=== PATIENT | female | born 1970 | race Caucasian/White ===

== ENCOUNTER → 2019-04-20 10:05 | Outpatient (CLI) | payer BC, SELFPAY ==
--- NOTE | ~2019-04-20 | XR_ITS ---
EXAMINATION: XR chest 2V DATE: 04/20/2019 10:22 INDICATION: Cough. TECHNIQUE: Frontal and lateral views of the chest were obtained. COMPARISON: Chest 2 views 01/06/2018 FINDINGS: The chest demonstrates clear lungs without pneumonia, pleural effusion, or pneumothorax. Th e heart size is normal. IMPRESSION: 1. No acute cardiopulmonary disease. Reviewed, dictated and finalized at location A. [facility]
== END ==
PROVIDERS: PCP Internal Medicine; Visit Provider Internal Medicine
DX: R05 Cough (principal)
CPT/HCPCS: 71046

== ENCOUNTER → 2019-05-18 10:16 | Outpatient (CLI) | payer BC, SELFPAY ==
--- NOTE | ~2019-05-18 | CT_ITS ---
EXAMINATION: CT sinus wo con DATE: 05/18/2019 10:31 INDICATION: Deviated nasal septum. TECHNIQUE: Computed tomography (CT) of the paranasal sinuses was performed without intravenous contra st. The dose-length product was 296.82 mGy-cm. Iterative reconstruction technique was employed. COMPARISON: None FINDINGS: Mild mucosal thickening of the maxillary and ethmoid sinuses. No air-fluid levels. Mastoids are pneumatized. Rightward nasal septal deviation. There are surgical changes consistent with resect ion of the ostiomeatal units. IMPRESSION: 1. Mild sinus disease. 2: Rightward nasal septal deviation. Reviewed, dictated and finalized at location A.
== END ==
PROVIDERS: PCP Internal Medicine; Visit Provider Otolaryngology
DX: J34.2 Deviated nasal septum (principal); J32.9 Chronic sinusitis, unspecified
CPT/HCPCS: 70486

== ENCOUNTER 2019-08-17 09:44 | Emergency (ER) | payer BC, SELFPAY ==
[2019-08-17] VITALS (7 sets, daily range): BP systolic 108–128; BP diastolic 64–89; PULSE 61–78; RESP 16–20; TEMP 36.6; O2SAT 100
--- NOTE | ~2019-08-17 | CT_ITS ---
EXAMINATION: CT brain wo con EXAM DATE: 08/17/2019 15:01 INDICATION: Frontal and occipital headache. TECHNIQUE: Spiral CT of the head was performed without contrast. Axial, coronal and sagittal images were reviewed. The dose-length product (DLP) for this examination was 681.00 mGy-cm. The exposure w as tailored according to patient size, and iterative reconstruction (ASIR) was used as additional dos e reduction technique. There is no prior study for comparison. FINDINGS: There is no acute intraparenchymal hemorrhage. No evidence of intraparenchymal brain mass lesion. No evidence of acute infarction. Please note that initial head CT has limited sensitivity f or small or acute infarctions. There is mild periventricular and subcortical hypodensity, nonspecific but probably related to small vessel ischemic disease. There is intracranial carotid arteriosclero sis. There are no extra-axial collections. There is no mass effect or midline shift. The orbits ar e unremarkable. Soft tissue is unremarkable. The visualized sinuses and mastoid air cells are well aerated. IMPRESSION: 1. No acute intracranial findings. Reviewed, dictated and finalized at location A.
--- NOTE | 2019-08-17 10:01 | ED.HA ---
HPI - Headache General Chief Complaint: Headache Stated Complaint: headache Time Seen by Provider: 08/17/19 09:48 Source: RN notes reviewed History of Present Illness HPI Narrative: Patient presents emergency department from home for headache. Patient states that symptoms began 2 days ago. Patient states she has a history of migraine headaches and this feels consistent with her previous migraines. She states she tried taking Topamax at home with minimal relief. Patient states that headache is associated with photosensitivity mild nausea she denies any fevers or chills vision changes neck pain numbness or tingling in extremities or any other symptoms. She states she took no pain medication this morning patient is followed by her PCP Dr. Wallis for her migraine headaches. States she normally gets migraines approximately once a month with her menstrual cycle. Patient states headache is located over frontal face behind the eyes and then superior posterior head which is consistent with previous migraines denies any neck pain Related Data Allergies Allergy/AdvReac Type Severity Reaction Status Date / Time Sulfa (Sulfonamide Allergy Unknown Verified 08/17/19 10:09 Antibiotics) Review of Systems Review of Systems: Narrative: Gen.: Denies fevers or chills Eyes: Denies eye pain or visual change ENT: Denies congestion Respiratory: Denies shortness of breath or cough CV: Denies chest pain or palpitations GI: Denies abdominal pain emesis or diarrhea. Reports mild nausea Musculoskeletal: Denies back pain or muscle pain Neuro: See HPI Skin: Denies rash Except as documented, all other systems reviewed and negative [facility] Past Medical History Medical History (Updated 08/17/19 @ 12:47 by Alejandro Rogers DO) Hypothyroidism Migraine headache Social History Social History (Updated 08/17/19 @ 10:02 by Alejandro Rogers DO) Smoking status: Never smoker Gender identity (if verbalized by the patient): Female Exam Narrative: Exam Narrative: APPEARANCE: No acute distress, nontoxic, resting in bed HEENT: Normocephalic, atraumatic, OMM, TMs clear bilaterally EYES: PERRL, EOMI NECK: Supple, nontender, full range of motion without pain, no meningismus RESPIRATORY: No respiratory distress, clear to auscultation bilaterally with no rhonchi wheezing or rales CARDIOVASCULAR: RRR s murmur ABDOMINAL: Soft, nontender, nondistended MUSCULOSKELETAL: Moves all extremities. No clubbing, cyanosis or edema. NEURO: A and O ?3, following commands, speech normal, cranial nerves II through XII grossly intact,muscle strength 5 out of 5 bilateral upper and lower extremities SKIN:: Warm, dry. Normal Color PSYCHIATRIC: Normal affect/mood Course Course Emergency Course: Patient states she is feeling better at this time. States that she is ready for discharge. Discussed with patient results of workup and diagnosis. Discussed need for follow-up with primary care, proper use of medication, and reasons to return to the emergency department. Patient understands and agrees to current treatment plan Vital Signs Vital signs: Vital Signs Temperature 97.8 F 08/17/19 09:50 Pulse Rate 76 08/17/19 09:50 Respiratory Rate 16 08/17/19 09:50 Blood Pressure 128/89 08/17/19 09:50 Pulse Oximetry 100 08/17/19 09:50 Temperature 97.8 F 08/17/19 09:50 Pulse Rate 76 08/17/19 09:50 Respiratory Rate 16 08/17/19 09:50 Blood Pressure 128/89 08/17/19 09:50 Pulse Oximetry 100 08/17/19 09:50 MDM - Headache MDM Narrative Medical decision making narrative: Patient's headache was not sudden or maximal in onset. There are no focal deficits on exam. Subarachnoid hemorrhage is felt to be unlikely at this time. There is no history of fever and neck is supple to evaluation without meningismus. Meningitis is felt to be unlikely. No traumatic history or signs of trauma on evaluation. Risk factors for cerebral venous thrombosis reviewed, no visual
[2019-08-17] MEDS: SODIUM CHLORIDE 0.9% IV 1,000 ML 999 ML IV CONT ×2 (10:10→11:45)
[2019-08-17] MEDS: KETOROLAC 30 MG/ML VIAL (*BKC) IV PUSH (10:11)
[2019-08-17] MEDS: ONDANSETRON INJ 4 MG/2 ML VIAL IV PUSH (10:11)
[2019-08-17] MEDS: MORPHINE SULFATE 4 MG/ML INJ IV PUSH (13:47)
[2019-08-17] MEDS: MAGNESIUM SULF 2 GM/WATER 50ML 2 GM/50 ML BAG IVPB (15:54)
[2019-08-17 16:05] LABS: Basophils Percent Auto 0.4 % (0.2-1.2); Eosinophils Percent Auto 0.6 % (0-4.4); Hematocrit 39.8 % (37.0-47.0); Hemoglobin 13.6 g/dL (12.0-15.0); Immature Granulocyte Absolute 0.02 K/mm3 (0.00-0.031); Immature Granulocyte Percent A 0.3 % (0-0.5); Lymphocytes Absolute Auto 1.47 K/mm3 (0.9-3.2); Lymphocytes Percent Auto 20.3 % (18.3-44.2); Mean Corpuscular HGB Conc 34.2 g/dl (32-36); Mean Corpuscular Hemoglobin 30.8 pg (26-34); Monocytes Absolute Auto 0.3 K/mm3 (0.1-0.6); Monocytes Percent Auto 3.6 % (2.6-8.5); Neutrophils Absolute Auto 5.4 K/mm3 (1.3-6.7); Neutrophils Percent Auto 74.8 % (45.5-73.1); Platelet Count Result 203 k/mm3 (150-375); Red Blood Count 4.42 M/mm3 (4.2-5.4); Red Cell Distribution Width 12.5 % (11.5-14.5); White Blood Count 7.2 K/mm3 (4.5-10.0)
[2019-08-17 16:15] LABS: Blood Urea Nitrogen 10 mg/dL (7-17); Calcium 8.1 mg/dL (8.4-10.2); Carbon Dioxide 20 mmol/L (22-30); Chloride 110 mmol/L (98-107); Estimated CRCL calculation 61 ml/min; Estimated Glomerular Filt Rate > 60; Glucose 86 mg/dL (65-105); Potassium 4.4 mmol/L (3.4-5.0); Sodium 136 mmol/L (137-145)
== END 2019-08-17 18:00 | disposition home or self-care (01) ==
PROVIDERS: Emergency Provider Emergency Medicine; PCP Internal Medicine
DX: G43.909 Migraine, unspecified, not intractable, without status migrainosus (principal); E03.9 Hypothyroidism, unspecified
CPT/HCPCS: 36415; 70450; 80048; 85025; 96361; 96365; 96375; 99284; J0131; J1100; J1200; J1885; J2270; J2405; J3475; J7030

== ENCOUNTER 2019-09-09 14:39 | Outpatient (CLI) | payer BC, SELFPAY ==
--- NOTE | ~2019-09-09 | US_ITS ---
EXAMINATION: US carotid duplex BI DATE: 09/09/2019 15:24 INDICATION: Atherosclerosis. Carotid stenosis. TECHNIQUE: Grayscale, color Doppler, and pulsed Doppler images of the cervical carotid arteries were obtained. The degree of vessel stenosis is placed in one of the following categories: normal, <50%, 5 0-69%, >=70% but less than near-occlusion, near-occlusion, or total occlusion. Note that percent sten osis relative to normal distal artery lumen diameter is indirectly measured from velocity measurement s as described by Sebastian, et al. Radiology 2003; [id number]. Notes: Normal: Peak systolic velocity <125 centimeters/sec and no plaque <50%. Peak systolic velocity <125 ( EDV <40; ICA/CCA PSV ratio <2.0; used these factors only a tandem lesions or low cardiac output or co ntralateral disease) 50-69 %: PSV 125-230 (EDV 40-100; ratio 2-4) >= 70% but less than near occlusion: PSV greater than 230 (EDV > 100; ratio> 4.0) Near Occlusion: PSV that is variable; markedly narrowed lumen Occlusion: Absent flow on color/spectral Doppler and no lumen on tyler scale. COMPARISON: None. FINDINGS: RIGHT: The right common carotid artery (CCA) peak systolic velocity (PSV) is 111 cm/s. The right internal ca rotid artery (ICA) PSV is 99 cm/s. The right ICA end-diastolic velocity (EDV) is 42 cm/s. The right I CA/CCA PSV ratio is 0.9. The external carotid artery (ECA) PSV is 124 cm/s. There is antegrade flow i n the right vertebral artery. LEFT: The left CCA PSV is 88 cm/s. The left ICA PSV is 81 cm/s. The left ICA EDV is 37 cm/s. The left ICA/C CA PSV ratio is 0.9. The ECA PSV is 106 cm/s. There is antegrade flow in the left vertebral artery. IMPRESSION: 1. Less than 50% stenosis in the right internal carotid artery by sonographic criteria. 2. Less than 50% stenosis in the left internal carotid artery by sonographic criteria. Reviewed, dictated and finalized at location A. IMPRESSION: 1. Less than 50% stenosis in the right internal carotid artery by sonographic c yocasta. 2. Less than 50% stenosis in the left internal carotid artery by sonographic awilda summers.
== END 2019-09-09 14:40 | disposition home or self-care (01) ==
PROVIDERS: PCP Internal Medicine; Visit Provider Internal Medicine
DX: I77.9 Disorder of arteries and arterioles, unspecified (principal); I65.23 Occlusion and stenosis of bilateral carotid arteries
CPT/HCPCS: 93880

== ENCOUNTER 2021-12-09 08:34 | Emergency (ER) | payer BC, SELFPAY ==
[2021-12-09 08:45] VITALS: BP 127/82; PULSE 84; RESP 16; TEMP 36.7; O2SAT 100
--- NOTE | 2021-12-09 09:12 | ED.GENADULT ---
HPI - General Adult General Chief complaint: Upper Respiratory Infection Stated complaint: cough,throat hurts Source: patient and family Mode of arrival: ambulatory Limitations: no limitations History of Present Illness HPI narrative: Patient presents for evaluation of sick symptoms for the last 4 days. Symptoms include sinus congestion, headache, sore throat, cough, body aches, fatigue and nausea, No fever, chills, vomiting, otalgia, chest pain, shortness of breath. She states she was exposed to COVID recently. She has never had COVID in the past. She took a home COVID test approximately 3 days ago which was negative. She is using phenylephrine and dextromethorphan with some mild improvement in her symptoms. She does not smoke. Related Data Home Medications Medication Instructions Recorded Confirmed alprazolam 0.5 mg tablet 0.5 mg PO DAILY 12/09/21 12/09/21 galcanezumab-gnlm 120 mg/mL 120 mg subcut DIRECTED 12/09/21 12/09/21 subcutaneous pen injector (Emgality Pen) levothyroxine 100 mcg tablet 100 mcg PO DAILY 12/09/21 12/09/21 rizatriptan 10 mg disintegrating 10 mg PO DAILY 12/09/21 12/09/21 tablet topiramate 100 mg tablet 100 mg PO DAILY 12/09/21 12/09/21 Allergies Allergy/AdvReac Type Severity Reaction Status Date / Time Sulfa (Sulfonamide Allergy Unknown Verified 12/09/21 08:53 Antibiotics) Review of Systems Review of Systems: CONSTITUTIONAL: Reports fatigue. Denies fever, chills, or sweats. EYES: Denies visual changes, redness, or discharge. ENT: Reports sinus congestion, postnasal drainage, sore throat. CARDIOVASCULAR: Denies chest pain, palpitations, or edema. RESPIRATORY: Reports cough. Denies shortness of breath GASTROINTESTINAL: Reports nausea. Denies abdominal pain, vomiting, or diarrhea. GENITOURINARY: Denies dysuria or hematuria. SKIN: Denies rash or itching. MUSCULOSKELETAL: Reports generalized body aches. NEUROLOGIC: Reports headache. Denies numbness, dizziness, or weakness. PSYCHIATRIC: Denies anxiety or depression. [facility] Past Medical History Medical History (Updated 12/09/21 @ 09:40 by Bright Mcneil, CUSTOMER SERVICE TRAINER, ) Hypothyroidism Migraine headache Surgical History Surgical History H/O sinus surgery History of rhinoplasty Family History Family History Mother Family history non-contributory Social History Social History Smoking status: Never smoker Alcohol intake: current Alcohol use details: Social but rare Substance use: never Living arrangements: with family Gender identity (if verbalized by the patient): Female Sexual Orientation (if Verbalized by the Patient): Straight or Heterosexual Spiritual care concerns: No Exam Narrative: GENERAL: Well-appearing, well-nourished, and in no acute distress. HEAD: Normocephalic, atraumatic. EYES: PERRLA and EOMI. ENT: Nares clear, no rhinorrhea or epistaxis. Mucous membranes moist. There is posterior pharyngeal erythema without exudate. Uvula is midline. Bilateral TMs pearly tyler nonbulging NECK: Supple. No adenopathy or masses. No carotid bruits or JVD CHEST: Occasional cough on exam. Clear to auscultation. No respiratory distress. No wheezes rales or rhonchi HEART: Regular rate and rhythm. No murmur heard. Normal peripheral pulses. ABDOMEN: Soft, nontender, nondistended, normal active bowel sounds. EXTREMITIES: Normal range of motion. No edema. SKIN: Warm, dry, no rash. NEURO: No focal deficits. Alert and oriented x3. PSYCH: Normal mood and affect. Course Course Emergency Course: This is a 52-year-old female presented for evaluation of sick symptoms. COVID, influenza, strep are all negative. She does meet criteria for ABRS and pharyngitis we will treat with Augmentin. She can continue to take phenylephrine and
== END 2021-12-09 09:45 | disposition home or self-care (01) ==
PROVIDERS: Emergency Provider Nurse Practitioner; PCP Internal Medicine
DX: J02.9 Acute pharyngitis, unspecified (principal); Z20.822 Contact with and (suspected) exposure to COVID-19; E03.9 Hypothyroidism, unspecified
CPT/HCPCS: 87081; 87426; 87804; 87880; 99213; C9803; G0463

== ENCOUNTER → 2021-12-12 15:54 | Outpatient (CLI) | payer BC, SELFPAY ==
--- NOTE | ~2021-12-12 | XR_ITS ---
EXAMINATION: XR chest 2V Exam Date/Time: 12/12/2021 15:57 CDT HISTORY: COUGH Comparison: None available. RESULT: Lines, tubes, and devices: None. Lungs and pleura: Diffuse subtle reticulonodular pattern. Cardiomediastinal silhouette: Stable. Other: No acute osseous or upper abdominal finding. IMPRESSION: Pulmonary opacities may represent bronchiolitis, as can be seen with atypical infection, asthma, aspi ration, and small airways disease. Reviewed, dictated and finalized at location K. IMPRESSION: Pulmonary opacities may represent bronchiolitis, as can be seen with atypical i nfection, asthma, aspiration, and small airways disease.
== END ==
PROVIDERS: PCP Internal Medicine; Visit Provider Internal Medicine
DX: R05.9 Cough, unspecified (principal); R91.8 Other nonspecific abnormal finding of lung field
CPT/HCPCS: 71046

== ENCOUNTER 2022-05-10 10:46 | Emergency (ER) | payer BC, SELFPAY ==
[2022-05-10 11:42] VITALS: BP 133/88; PULSE 91; RESP 18; TEMP 37.6; O2SAT 98
[2022-05-10 12:33] LABS: Influenza A QL RT-PCR Negative (Negative); Influenza B QL RT-PCR Negative (Negative); RSV RNA, RT-PCR Negative (Negative); SARS-CoV-2 RNA PCR Positive
--- NOTE | 2022-05-10 12:59 | ED.GENADULT ---
HPI - General Adult General Chief complaint: Headache Stated complaint: MIGRAINE HEADACHE Time Seen by Provider: 05/10/22 12:41 History of Present Illness HPI narrative: 52-year-old female with a history of migraine headaches here for evaluation of migraine over the past day and a half. Patient states the pain is diffuse across her entire head, throbbing in nature, associated with photophobia and nausea. Denies relief after her home meds. She is also felt unwell with a cough, sinus congestion, low-grade fevers at home. Called her primary who put her on azithromycin, states that this is made her nausea worse. No neck stiffness. Related Data Home Medications Medication Instructions Recorded Confirmed alprazolam 0.5 mg tablet 0.5 mg PO DAILY 12/09/21 12/09/21 galcanezumab-gnlm 120 mg/mL 120 mg subcut DIRECTED 12/09/21 12/09/21 subcutaneous pen injector (Emgality Pen) levothyroxine 100 mcg tablet 100 mcg PO DAILY 12/09/21 12/09/21 rizatriptan 10 mg disintegrating 10 mg PO DAILY 12/09/21 12/09/21 tablet topiramate 100 mg tablet 100 mg PO DAILY 12/09/21 12/09/21 Allergies Allergy/AdvReac Type Severity Reaction Status Date / Time Sulfa (Sulfonamide Allergy Unknown Verified 12/09/21 08:53 Antibiotics) Review of Systems Review of Systems: Gen: Denies fevers or chills Eyes: Denies eye pain or visual change ENT: Denies congestion Respiratory: Denies shortness of breath or cough CV: Denies chest pain or palpitations GI: Denies abdominal pain nausea, emesis or diarrhea denies burning, urgency, frequency or hematuria Musculoskeletal: Denies back pain or muscle pain Neuro: Reports headache. Denies numbness, tingling, weakness or focal weakness Skin: Denies rash Except as documented, all other systems reviewed and negative PMFSH Past Medical History Medical History Hypothyroidism Migraine headache Surgical History Surgical History H/O sinus surgery History of rhinoplasty Family History Family History Mother Family history non-contributory Social History Social History Smoking status: Never smoker Alcohol intake: current Alcohol use details: Social but rare Substance use: never Living arrangements: with family Gender identity (if verbalized by the patient): Female Sexual Orientation (if Verbalized by the Patient): Straight or Heterosexual Spiritual care concerns: No Exam Narrative: APPEARANCE: Well appearing, no pain in distress, well-nourished. Head: Normocephalic and atraumatic. EYES: PERRLA/EOMI, conjunctivae clear NOSE: No nasal drainage EARS: External ear normal in appearance THROAT: Oropharynx is clear. Mucous membranes are moist. NECK: Supple. No adenopathy, no masses. RESPIRATORY: Airway patent, respirations nonlabored. Clear to auscultation bilaterally, no rales, rhonchi, wheezing. CARDIOVASCULAR: Regular rate and rhythm without murmurs, rubs, or gallops. ABDOMINAL: Normoactive bowel sounds. Soft, nontender, nondistended. No rebound tenderness or guarding. MUSCULOSKELETAL: Extremities are warm and well-perfused. Moves all extremities well. No edema. NEURO: Normal speech. No focal neurologic deficits. SKIN: Skin is warm and dry. No rashes. PSYCHIATRIC: Normal affect/mood. Course Vital Signs Vital signs: Vital Signs Temperature 99.7 F H 05/10/22 11:42 Pulse Rate 91 05/10/22 11:42 Respiratory Rate 18 05/10/22 11:42 Blood Pressure 133/88 05/10/22 11:42 Pulse Oximetry 98 05/10/22 11:42 Oxygen Delivery Room Air 05/10/22 11:42 Temperature 99.7 F H 05/10/22 11:42 Pulse Rate 88 05/10/22 14:15 Respiratory Rate 16 05/10/22 14:15 Blood Pressure 102/63 05/10/22 14:15 Pulse Oximetry 100 05/10
[2022-05-10] MEDS: PROCHLORPERAZINE EDISYLATE 10 MG/2 ML VIAL IV PUSH (13:16)
[2022-05-10] MEDS: diphenhydrAMINE HCl INJ 50 MG/ML VIAL 25 MG IV PUSH (13:16)
[2022-05-10] MEDS: SODIUM CHLORIDE 0.9% IV 1,000 ML 999 ML IV CONT (13:16)
[2022-05-10] MEDS: KETOROLAC 15 MG/ML VIAL (*BKC) IV PUSH (14:05)
[2022-05-10 14:15] VITALS: BP 102/63; PULSE 88; RESP 16; O2SAT 100
== END 2022-05-10 14:16 | disposition home or self-care (01) ==
PROVIDERS: Emergency Medicine; Emergency Provider Physician Assistant; PCP Internal Medicine
DX: U07.1 COVID-19 (principal); E03.9 Hypothyroidism, unspecified
CPT/HCPCS: 87637; 96360; 96361; 96375; 99284; J0131; J0780; J1200; J1885; J7030

== ENCOUNTER 2022-07-18 12:41 | Outpatient (CLI) | payer BC, SELFPAY ==
--- NOTE | ~2022-07-18 | US_ITS ---
EXAMINATION: US carotid duplex BI DATE: 07/18/2022 13:29 INDICATION: Carotid artery disease. TECHNIQUE: Grayscale, color Doppler, and pulsed Doppler images of the cervical carotid arteries were obtained. The degree of vessel stenosis is placed in one of the following categories: normal, <50%, 5 0-69%, >=70% but less than near-occlusion, near-occlusion, or total occlusion. Note that percent sten osis relative to normal distal artery lumen diameter is indirectly measured from velocity measurement s as described by Sebastian, et al. Radiology 2003; [id number]. COMPARISON: Ultrasound 09/09/2019 FINDINGS: RIGHT: The right common carotid artery (CCA) peak systolic velocity (PSV) is 89 cm/s. The right internal car otid artery (ICA) PSV is 64 cm/s. The right ICA end-diastolic velocity (EDV) is 29 cm/s. The right IC A/CCA PSV ratio is 0.7. Grayscale and color Doppler images yield an estimate of <50% diameter reducti on from plaque in the ICA. There is antegrade flow in the right vertebral artery. LEFT: The left CCA PSV is 93 cm/s. The left ICA PSV is 79 cm/s. The left ICA EDV is 38 cm/s. The left ICA/C CA PSV ratio is 0.9. Grayscale and color Doppler images yield an estimate of <50% diameter reduction from plaque in the ICA. There is antegrade flow in the left vertebral artery. IMPRESSION: 1. <50% stenosis in the right internal carotid artery. 2. <50% stenosis in the left internal carotid artery. Reviewed, dictated and finalized at location E.
== END 2022-07-18 12:42 | disposition home or self-care (01) ==
PROVIDERS: PCP Internal Medicine; Visit Provider Internal Medicine
DX: I65.23 Occlusion and stenosis of bilateral carotid arteries (principal)
CPT/HCPCS: 93880

== ENCOUNTER → 2022-08-29 15:00 | Outpatient (CLI) | payer BC, SELFPAY ==
--- NOTE | ~2022-08-29 | XR_ITS ---
EXAM: XR lumbar spine 2-3V DATE: 08/29/2022 15:19 HISTORY: LIFTING INJURY 6 WEEKS AGO LBP AND BILAT LEG PAIN . COMPARISON: None available. FINDINGS: Mild lumbar scoliosis. 5 nonrib-bearing lumbar-type vertebral bodies. Pedicles intact. 3 mm anterolisthesis at L4-5. Vertebral body heights maintained. Mild disc space narrowing at L4-5. Mild facet sclerosis in the lower lumbar spine. IMPRESSION: Grade 1 anterolisthesis and mild degenerative disc disease at L4-5. Mild multilevel lower lumbar facet arthropathy Reviewed, dictated and finalized at location K.
== END ==
PROVIDERS: PCP Internal Medicine; Visit Provider Internal Medicine
DX: M54.50 Low back pain, unspecified (principal); M43.16 Spondylolisthesis, lumbar region; M51.36 Other intervertebral disc degeneration, lumbar region
CPT/HCPCS: 72100

== ENCOUNTER 2022-09-24 14:10 | Outpatient (CLI) | payer OTHER, BC, SELFPAY ==
--- NOTE | ~2022-09-24 | MR_ITS ---
MRI of the lumbar spine Clinical History: Back pain Technique: Axial T2-weighted images, and sagittal T1-weighted, T2-weighted, and T2 fat-sat images wer e acquired. Findings: There is no fracture or subluxation of the lumbar spine. Vertebral bodies maintain normal h eight and alignment. Mild hypointense T1 marrow signal could reflect underlying red marrow conversion /anemia. No suspicious bone marrow signal abnormality evident. At L1-L2, L2-L3, L3-L4, there is no disc bulge or herniation. There are mild to moderate facet joint degenerative changes at these levels, worst at L3-L4. No spinal canal stenosis or neural foraminal na rrowing at these levels. At L4-L5, there is minimal disc bulge with moderate to advanced facet arthropathy. No spinal canal st enosis. Probable minimal bilateral neural foraminal narrowing. At L5-S1, there is mild disc bulge with moderate facet arthropathy. No central canal stenosis. There is probable mild bilateral neural foraminal narrowing. Paravertebral soft tissues are unremarkable. Impression: Mild degenerative spondylitic changes, as above. Reviewed, dictated and finalized at [facility]. Impression: Mild degenerative spondylitic changes, as above.
== END 2022-09-24 14:11 ==
PROVIDERS: PCP Internal Medicine; Visit Provider Internal Medicine
DX: M47.816 Spondylosis without myelopathy or radiculopathy, lumbar region (principal)
CPT/HCPCS: 72148

== ENCOUNTER 2024-01-25 14:31 | Emergency (ER) | payer BC, SELFPAY ==
[2024-01-25 14:40] VITALS: BP 113/76; PULSE 73; RESP 16; TEMP 36.2; O2SAT 99
--- NOTE | 2024-01-25 14:49 | ED_ITS ---
HPI - URI/Sore Throat General Chief Complaint: Upper Respiratory Infection Stated Complaint: sinus issue,GRACIA Time Seen by Provider: 01/25/24 14:49 History of Present Illness HPI Narrative: Patient presents with complaints of sinus pain and pressure that has been present for 2-3 weeks, worsening. She reports that she now has a productive cough. Has had some intermittent headaches throughout the past 10 days. She denies all injury and trauma. She does report lack of energy, but denies any fevers. She has been taking [id number] medications for her symptoms with minimal relief. She denies any shortness of breath. She is in no distress at this time. Related Data Home Medications Medication Instructions Recorded Confirmed alprazolam 0.5 mg tablet 0.5 mg PO DAILY 12/09/21 12/09/21 galcanezumab-gnlm 120 mg/mL 120 mg subcut DIRECTED 12/09/21 12/09/21 subcutaneous pen injector (Emgality Pen) levothyroxine 100 mcg tablet 100 mcg PO DAILY 12/09/21 12/09/21 rizatriptan 10 mg disintegrating 10 mg PO DAILY 12/09/21 12/09/21 tablet topiramate 100 mg tablet 100 mg PO DAILY 12/09/21 12/09/21 Allergies Allergy/AdvReac Type Severity Reaction Status Date / Time Sulfa (Sulfonamide Allergy Unknown Verified 01/25/24 15:26 Antibiotics) Review of Systems Review of Systems: All systems reviewed & are unremarkable except as noted in HPI and below Constitutional: Constitutional: Reports no additional constitutional compl aints, Reports headache(s) and Reports lethargy ENT: Reports system reviewed and no additional complaints, except as documented, Reports nasal congestion, Reports nasal discharge, Reports sinus pain and Reports sinus pressure Cardiovascular: Cardiovascular: Reports no additional cardiovascular complaints Respiratory: Respiratory: Reports no additional respiratory complaints Gastrointestinal: Gastrointestinal: Reports no additional gastrointestinal complaints [facility] Past Medical History Medical History Hypothyroidism Migraine headache Surgical History Surgical History H/O sinus surgery History of rhinoplasty Family History Family History Mother Family history non-contributory Social History Social History Smoking status: Never smoker Alcohol intake: current Alcohol use details: Social but rare Substance use: never Living arrangements: with family Gender identity (if verbalized by the patient): Female Sexual Orientation (if Verbalized by the Patient): Straight or Heterosexual Spiritual care concerns: No Exam Const: General: cooperative, no acute distress, alert and awake Orientation/consciousness: oriented to person, oriented to place and oriented to time HENMT: Head: normal to inspection Ears: TM abnormal with fluid behind the TM bilateral Face and sinus: sinus tenderness maxillary Mouth: Yes moist mucous membranes Throat: posterior oropharynx abnormal erythema Resp: Effort & Inspection: normal respiratory effort and able to speak in complete sentences Auscultation: clear to auscultation bilaterally, no crackles, no rales, no rhonchi and no wheezes Cardio: Palpation: normal PMI Rate: regular rate Rhythm: regular rhythm Heart sounds: S1 normal heart sound present and S2 normal heart sound present Neuro: General: oriented to person, oriented to place and oriented to time Cranial nerves: Yes CN's II-XII intact bilaterally Psych: Appearance: grossly normal Thought process: Normal thought process present Insight: Good insight present (Psych) Judgement: Good judgement present (Psych) Course Course Level of Care: Express Care Visit Vital Signs Vital signs: Vital Signs Temperature 97.1 F L 01/25/24 14:40 Pulse Rate 73 01/25/24 14:40 Respiratory Rate 16 01/25/24 14:40 Blood Pressure 113/76 01/25/24 14:40 Pulse Oximetry 99 01/25/24 14:40 Oxygen Delivery Room Air 01/25/24 14:40 Temperature 97.1 F L 01/25/24 14:40 Pulse Rate 73 01/25/24 14:40 Respiratory Rate 16 01/25/24 14:40 Blood Pressure 113/76 01/25/24 14:40 Pulse Oximetry 99 01/25/24 14:40 Oxygen Delivery Room Air 01/25/24 14:40 MDM - URI/Sore Throat MDM Narrative Medical decision making narrative: History and exam consistent with sinusitis, patient nontoxic appearing, stable for discharge home on p.o. antibiotic therapy. Discharge instructions reviewed with patient, as well as provided in writing per nursing staff. The instructions also include specific and strict return/GO TO THE ER as well as f/u information. All questions have been answered, and the patient deny any further questions with discharge and discharge plan. Some parts of this dictation were generated by voice recognition software and may contain typographical and/or grammatical inaccuracies. Differential Diagnosis Differential diagnosis: Likely upper respiratory infection, otitis media, viral infection and influenza Medical Records Attestation: I reviewed the patient's medical records. Lab Data Attestation: I reviewed the patient's lab results. Discharge Plan Discharge Clinical Impression: Sinusitis Qualifiers: Sinusitis location: maxillary Chronicity: acute Recurrence: not specified as recurrent Qualified Code(s): J01.00 - Acute maxillary sinusitis, unspecified Patient Disposition: Home, Self-Care Condition: Stable Instructions: Antibiotic Form, Sinusitis (ED) Additional Instructions: Take medications as prescribed. Follow-up with primary care provider. Emergency department for new or worse symptoms Patient Language: [place] Prescriptions: New doxycycline hyclate 100 mg tablet 100 mg PO BID Qty: 20 0RF No Action levothyroxine 100 mcg tablet 100 mcg PO DAILY alprazolam 0.5 mg tablet 0.5 mg PO DAILY rizatriptan 10 mg tablet,disintegrating 10 mg PO DAILY topiramate 100 mg tablet 100 mg PO DAILY Emgality Pen 120 mg/mL pen injector 120 mg SUBCUT DIRECTED amoxicillin-pot clavulanate 875-125 mg tablet 1 tablet PO Q12H Qty: 20 0RF Follow-up/Referrals: [place],Robi Major MD [Primary Care Provider] - 2 Weeks Stand Alone Forms: Work/School Release IP Time of Disposition: 15:15
[2024-01-26 10:05] LABS: EDINFLUASCREEN Negative (Negative); EDINFLUBSCREEN Negative (Negative)
== END 2024-01-25 15:35 | disposition home or self-care (01) ==
PROVIDERS: Emergency Provider Nurse Practitioner Family; PCP Internal Medicine
DX: J01.00 Acute maxillary sinusitis, unspecified (principal); E03.9 Hypothyroidism, unspecified
CPT/HCPCS: 87804; 99213; G0463

== ENCOUNTER 2024-10-01 07:04 | Outpatient (CLI) | payer BC, SELFPAY ==
--- NOTE | ~2024-10-01 | XR_ITS ---
EXAMINATION: XR chest 2V 10/01/2024 07:25 INDICATION: Cough PROCEDURE: 2 view chest COMPARISON: 12/12/2021 FINDINGS: The lungs are clear. The cardiomediastinal silhouette is within normal limits. There are no pleural effusions. There is no pneumothorax suspected. IMPRESSION: 1: NO ACUTE CARDIOPULMONARY DISEASE. Reviewed, dictated and finalized at location A.
== END 2024-10-01 07:05 | disposition home or self-care (01) ==
LOC: MICIMG 07:05
PROVIDERS: PCP Internal Medicine; Visit Provider Internal Medicine
DX: R05.1 Acute cough (principal)
CPT/HCPCS: 71046

== ENCOUNTER 2025-02-12 09:29 | Emergency (ER) | payer BC, SELFPAY ==
--- NOTE | 2025-02-12 09:30 | ED.URI ---
HPI - URI/Sore Throat General Chief Complaint: Upper Respiratory Infection Stated Complaint: Sinus Time Seen by Provider: 02/12/25 09:29 Source: patient Mode of arrival: ambulatory Limitations: no limitations History of Present Illness HPI Narrative: Amelia is a 54 year old female patient presenting to the clinic today with c/o sinus pressure and congestion. She reports she has chronic sinusitis with history of sinus surgery. Normally has green nasal drainage but over the last 4 days she has increase sinus pressure and changes to her nasal discharge. States she is having brown creamy discharge coming from her sinuses. Has felt feverish but has not checked her temperature. Does sinus rinses daily. Related Data Home Medications ?Medication ?Instructions ?Recorded ?Confirmed ?Last Taken ?Type levothyroxine 100 mcg tablet 100 mcg PO DAILY 12/09/21 02/12/25 Unknown History diclofenac sodium 75 mg mg PO 02/12/25 Unknown History tablet,delayed release Allergies Allergy/AdvReac Type Severity Reaction Status Date / Time Sulfa (Sulfonamide Allergy Unknown Verified 02/12/25 09:42 Antibiotics) Review of Systems Review of Systems: Pertinent positives per HPI. Patient denies any fever, chills, rash, visual changes, dizziness, cough, shortness of breath, chest pain, palpitations, nausea, vomiting, diarrhea, constipation, abdominal pain, or any urinary issues. [facility] Past Medical History Medical History Hypothyroidism Migraine headache Surgical History Surgical History History of rhinoplasty H/O sinus surgery Family History Family History Mother Family history non-contributory Social History Social History Smoking status: Never smoker Alcohol intake: current Alcohol use details: Social but rare Substance use: never Living arrangements: with family Gender identity (if verbalized by the patient): Female Sexual Orientation (if Verbalized by the Patient): Straight or Heterosexual Spiritual care concerns: No Comments At the time of my signature, I reviewed and agree with the nursing past medical, surgical, social, and family history. There is no relevant family history pertinent to the patient complaint. Exam Narrative: General: Well-developed, well nourished, in no apparent distress Head: Normocephalic, atraumatic Eyes: Pupils equally round and reactive to light bilaterally, EOM intact, sclera and conjunctive clear, no discharge, lids normal Ears: TMs intact and clear, ear canals clear, no drainage, grossly hearing normal. Nose: Nares patent, yellow nasal discharge, moderate inflammation, maxillary and frontal sinus tenderness. Mouth: Oral pharynx without lesions or masses, good dentition, MMM. Neck: Supple, trachea midline, no enlargement of anterior or posterior cervical nodes, no thyroid masses or goiter palpable. Cardio: Regular rate and rhythm, s1 and s2 normal, no murmur appreciated. Resp: Clear to auscultation bilaterally, no rhonchi, rales, wheezing or rubs Course Course Level of Care: Express Care Visit Vital Signs Vital signs: Vital Signs Temperature 36.6 C 02/12/25 09:38 Pulse Rate 67 02/12/25 09:38 Respiratory Rate 18 02/12/25 09:38 Blood Pressure 113/63 02/12/25 09:38 Pulse Oximetry 100 02/12/25 09:38 Oxygen Delivery Room Air 02/12/25 09:38 Temperature 36.6 C 02/12/25 09:38 Pulse Rate 67 02/12/25 09:38 Respiratory Rate 18 02/12/25 09:38 Blood Pressure 113/63 02/12/25 09:38 Pulse Oximetry 100 02/12/25 09:38 Oxygen Delivery Room Air 02/12/25 09:38 [facility] Narrative Medical decision making narrative: At the time of visit patient is resting comfortably on the exam table. Patient appears to be nontoxic. C/o sinus pressure and congestion. She reports she has chronic sinusitis with history of sinus surgery. Normally has green nasal drainage but over the last 4 days she has increase sinus pressure and changes to her nasal discharge. States she is having brown creamy discharge coming from her sinuses. Has felt feverish but has not checked her temperature. Does sinus rinses daily. On exam patient as bilateral TMs intact and clear, yellowish nasal drainage with moderate anterior turbinate inflammation, tenderness palpation over the maxillary and frontal sinuses, oral pharynx normal, heart rates regular rate and rhythm, lung sounds are clear. Vital signs are stable. Plan: I suspect patient has acute on chronic rhinosinusitis. Prescription for Augmentin 10 day course was sent to the pharmacy. Recommend following up with ENT if symptoms are not improving- may need washing with culture. Supportive measures were discussed with the patient and they voiced understanding discharge instructions and agrees to treatment plan. Return precautions reviewed Differential Diagnosis Differential Diagnosis: Differential diagnostic considerations for upper respiratory infection include upper respiratory infection, croup, otitis media, sinusitis, viral infection, bronchitis, influenza, pharyngitis, strep, uvulitis. Discharge Plan Discharge Clinical Impression: Chronic rhinosinusitis Patient Disposition: Home Condition: Stable Instructions: Antibiotic Form, Rhinosinusitis (ED) Additional Instructions: I suspect you have acute on chronic rhinosinusitis. Take prescription medications only as prescribed-Augmentin Increase fluids and stay well hydrated May take Tylenol or motrin as directed on bottle for pain/fever May use Flonase 1 spray in each nare daily May take OTC antihistamines such as Zyrtec or Claritin daily as directed on bottle May apply Vicks vapor rub to chest to open sinuses Sinus rinses for congestion Cepacol spray, cough drops, throat lozenges, warm tea with honey/lemon, gargle salt water to soothe throat BRAT diet for diarrhea Clear liquids x 24 hours then advance as tolerated for nausea/vomiting Go to the ED if you develop a worsening in your condition- high fever not controlled by Tylenol or Motrin, dehydration, weakness, lethargy, shortness of breath, or chest pain. Follow up with your PCP in 3-5 days if symptoms persist. Patient Language: Lithuanian Prescriptions: New amoxicillin-pot clavulanate 875-125 mg tablet 1 tablet PO Q12H 10 Days Qty: 20 0RF No Action levothyroxine 100 mcg tablet 100 mcg PO DAILY diclofenac sodium 75 mg tablet,delayed release (DR/EC) PO Follow-up/Referrals: Lithuanian,Robi Major MD [Primary Care Provider] Time of Disposition: 09:42 Quality NIHSS Nursing Documentation ED NIHSS nursing documentation: reviewed/agree
[2025-02-12 09:38] VITALS: BP 113/63; PULSE 67; RESP 18; TEMP 36.6; O2SAT 100
== END 2025-02-12 09:52 | disposition home or self-care (01) ==
PROVIDERS: Emergency Provider Nurse Practitioner Family; PCP Internal Medicine
DX: J32.9 Chronic sinusitis, unspecified (principal); E03.9 Hypothyroidism, unspecified
CPT/HCPCS: 99213; G0463